=== PATIENT | male | born 1975 | race Caucasian/White ===

== ENCOUNTER → 2022-06-12 08:06 | Outpatient (BNVA) | payer OTHER, SELFPAY | PROVIDERS: Visit Provider Physician Assistant | DX: M47.812 Spondylosis without myelopathy or radiculopathy, cervical region (principal) | CPT/HCPCS: 72050 ==

== ENCOUNTER 2022-08-09 07:02 | Outpatient (CLI) | payer OTHER, SELFPAY ==
--- NOTE | 2022-08-09 07:15 | MR_ITS ---
WS: [id number] MRI CERVICAL SPINE NONCONTRAST TECHNIQUE: Sagittal T1, T2 and STIR imaging. Axial T2, gradient, and fiesta imaging. CLINICAL INFORMATION: neck pain COMPARISON: None. FINDINGS: Straightening with slight reversal normal cervical lordosis. Disc space narrowing worse at C3-C4 C4-C 5 and C5-C6. Slight retrolisthesis C5 on C6. Shallow disc protrusion T3-T4. Slightly anterolisthesis C2 on C3. C2-C3: Mild facet arthropathy. Mild LEFT and no significant RIGHT foraminal narrowing. C3-C4: Mild disc osteophytic ridging. Mild facet arthropathy. Moderate LEFT and no significant RIGHT foraminal narrowing. Spinal canal is patent. C4-C5: Mild disc osteophytic ridging. Mild facet arthropathy. Mild LEFT and no significant RIGHT fora cindy narrowing. C5-C6: Disc osteophyte complex with slight indentation on cervical cord. Mild to moderate central can al stenosis. Moderate to severe LEFT and mild RIGHT bony foraminal narrowing. Moderate facet arthropa thy. C6-C7: Disc osteophyte complex with endplate ridging. Moderate RIGHT and mild LEFT bony foraminal colt rowing. Moderate facet arthropathy. C7-T1: Normal. Visualized brain stem structures: Normal. Prevertebral soft tissues: Normal. MR/MR cervical spin wo con* [id number] IMPRESSION: 1. Straightening with reversal normal cervical lordosis. Disc space narrowing worse at C3-C4 C4-C5 and C5-C6. This appears unchanged since 2019 2. Mild to moderate central canal stenosis C5-C6 due to disc osteophyte comple x with slight contact of the cervical cord. 3. Multilevel bony foraminal narrowing moderate LEFT C3-C4, moderate to severe LEFT C5-C6, and moderate RIGHT C6-C7. 4. LEFT C2-C3 and LEFT C3-C4 facet synovitis with periarticular edema.
== END 2022-08-09 07:03 | disposition home or self-care (01) ==
PROVIDERS: Visit Provider Physician Assistant
DX: M47.812 Spondylosis without myelopathy or radiculopathy, cervical region (principal)
CPT/HCPCS: 72141

== ENCOUNTER 2022-08-30 09:21 | Outpatient (CLI) | payer OTHER, SELFPAY ==
[2022-08-30 09:57] LABS: Basophils # 0.1 10^3/uL (0.0-0.1); Basophils % 0.7 %; Eosinophils % 0.4 %; Hematocrit 47.9 % (42.0-52.0); Hemoglobin 15.8 g/dL (11.7-16.6); Lymphocytes # 1.6 10^3/uL (0.8-4.8); Lymphocytes % 21.7 %; Mean Corpuscular Hemoglobin 31.2 pg (28.0-34.0); Mean Corpuscular Volume 94.5 fl (80-94); Mean Platelet Volume 9.7 fL (7.4-10.4); Monocytes # 0.6 10^3/uL (0.2-0.9); Neutrophils # 4.99 10^3/uL (1.8-7.7); Neutrophils % 68.8 %; Nucleated Red Blood Cells % 0 %; Platelet Count 242 10^3/cmm (130-400); Red Blood Count 5.07 10^6/uL (4.1-5.3); Red Cell Distribution Width 12.6 % (12.1-15.1); White Blood Count 7.3 10^3/uL (4.0-10.0)
[2022-08-30 10:10] LABS: Alanine Aminotransferase 32 U/L (0-41); Albumin Level 4.3 g/dL (3.5-5.2); Alkaline Phosphatase 65 U/L (40-130); Anion Gap 11.3 (5-19); Aspartate Amino Transferase 26 U/L (0-40); Blood Urea Nitrogen 13 mg/dL (6-20); Calcium 9.1 mg/dL (8.5-10.5); Carbon Dioxide 29 mmol/L (22-29); Chloride 101 mmol/L (98-107); Globulin 2.7 g/dL (1.3-4.6); Glomerular Filtration Rate 102.7 mL/min (90-130); Glucose 86 mg/dL (65-115); Osmolality Calculated 283 mOsm/kg (285-295); Potassium 4.3 mmol/L (3.5-5.1); Sodium 137 mmol/L (136-145); Total Bilirubin 0.4 mg/dL (0.15-1.2)
== END 2022-08-30 09:22 | disposition home or self-care (01) ==
PROVIDERS: PCP Orthopaedic Surgery; Visit Provider Orthopaedic Surgery
DX: Z01.818 Encounter for other preprocedural examination (principal)
CPT/HCPCS: 36415; 80053; 85025

== ENCOUNTER 2022-09-26 11:00 | Day surgery (SDC) | payer OTHER, SELFPAY ==
[2022-09-13 08:32] VITALS: BMI 25.0
--- NOTE | 2022-09-13 17:11 | P.ANESASSM_ITS ---
Pre-Anesthetic Assessment Height/Weight: Height 1.83 m Weight 83.915 kg Operation Date: 09/24/22 09:40 Proposed Procedures p Anterior Cervical Discectomy & Fusion(Not Applicable) - Thom Paredes DO Familial anesthetic complications: none Was Beta Chip taken within 24 hours: N/A Was Clonidine taken within 24 hours: N/A Social No alcohol and No tobacco Exam alert, oriented x 3, clear to auscultation bilaterally and regular rate & rhythm Airway Submandibular: within normal limits Cervical ROM: within normal limits (Good ext with mild discomfort) Mallampati: Class II Dentition: full Musc/skel Osteoarthritis/DJD Anesthetic Plan ASA status: 2 Anesthesia: General Medications/Allergies Home Medications Medication Instructions Recorded Confirmed Last Taken Type Tens Unit #1 06/12/22 09/13/22 Unknown Rx gabapentin 300 mg capsule 300 mg PO BID 06/12/22 09/13/22 09/12/22 History methocarbamol 500 mg tablet 500 mg PO TID #90 tabs 08/14/22 09/13/22 09/13/22 Rx intraoperative neuromonitoring #1 09/10/22 09/13/22 Unknown Rx Bone Growth Stimulator [id number] #1 09/13/22 Unknown Rx magnesium L-threonate 48 mg 400 mg PO DAILY 09/13/22 09/13/22 09/12/22 History magnesium (667 mg) capsule multivitamin 1 tab PO DAILY 09/13/22 09/13/22 09/13/22 History tramadol 50 mg tablet 50 mg PO Q6H PRN Pain 09/13/22 09/13/22 09/12/22 History Allergies Allergy/AdvReac Type Severity Reaction Status Date / Time Penicillins Allergy Unknown Unknown Verified 09/13/22 09:51 [facility] Anesthesia Medical History Cervicalgia Cluster headache Surgical History Hx of LASIK [place] teeth extracted Family History Other CAD (coronary artery disease) Cancer Diabetes Hypertension Denies family history of Clotting disorder Anesthesia complication Bleeding disorder Stroke Social History Smoking and tobacco status: never smoked Second hand smoke exposure: Yes Alcohol intake: never Substance/Drug Use: never Data Anesthesia Cardiac Studies: No Data to Display
[2022-09-24 12:02] VITALS: BP 121/82; PULSE 83; RESP 18; TEMP 36.3; O2SAT 98
[2022-09-24] MEDS: sodium chloride 0.9% 1,000 ML 30 ML IV (12:19)
--- NOTE | 2022-09-24 13:09 | P.ANESUD_ITS ---
Pre-Anesthetic Update Pre-Anesthetic Assessment: Date of Surgery/Procedure: 09/24/22 Preop Phyllis gnosis: Cervical spondylosis with myelopathy Proposed Procedure: Operation Date: 09/24/22 13:20 Proposed Procedures p Anterior Cervical Discectomy & Fusion C3-4, C4-5, C5-6, C6-7(Not Applicable) - Thom Paredes, DO Any changes to Pre-Anesthetic Assessment?: No Last Intake: Intake Last Liquid Date 09/24/22 Last Liquid Time 07:00 Last Solid Date 09/23/22 Last Solid Time 18:00 Vitals: Temperature 97.4 F L 09/24/22 12:02 Temperature Source Temporal Artery S can 09/24/22 12:02 Pulse Rate 83 09/24/22 12:02 Respiratory Rate 18 09/24/22 12:02 Blood Pressure 121/82 09/24/22 12:02 Blood Pressure Samreen n 95 09/24/22 12:02 Pulse Oximetry 98 09/24/22 12:02 Oxygen Delivery Me thod Room Air 09/24/22 12:02 Exam: Pre-Anes Outpt Exam: alert, oriented x 3, clear to auscultation bilaterally and regular rate & rhythm Cardiac Studies: No Data to Display
[2022-09-24] MEDS: HYDROmorphone 1 mg/mL INJ 1 mL 0.5 MG IVP (13:34)
--- NOTE | 2022-09-24 14:14 | W.PM.OPSUD ---
Surgery/Procedure H&P Update DATE OF PROCEDURE: September 24, 2022 DATE H&P PERFORMED: 08/30/22 H&P UPDATE INFORMATION: I have reviewed H&P completed within last 30 days, I have examined patient prior to procedure and No changes to prior documentation PREOP DIAGNOSIS: Cervical spondylosis with myelopathy PLANNED PROCEDURE: Operation Date: 09/24/22 13:20 Proposed Procedures p Anterior Cervical Discectomy & Fusion C3-4, C4-5, C5-6, C6-7(Not Applicable) - Thom Pardees DO
[2022-09-24] MEDS: fentaNYL 50 mcg/mL INJ 2mL IVP (15:34)
--- NOTE | 2022-09-24 16:52 | SUR.PREOP ---
1615 Dr Paredes here to talk with pt and stated the emergency surgery had not started yet and it would be several hours with that case and his case would take several more hours and it would be better to place him on surgery schedule as first case Saturday instead of working late into the night,pt agreed and called who was on her way back from their home in [place], [place]
--- NOTE | 2022-09-26 | XR_ITS ---
WS: [id number] Cervical spine, C-arm fluoroscopy views, 09/26/2022 Clinical Data: or pic; ACDF C3-7 Comparison: Cervical spine, 06/12/2022 Findings: Dr. Paredes performed an anterior cervical disc fusion C3-C7.
== END 2022-09-26 18:00 | disposition home or self-care (01) ==
PROVIDERS: PCP Orthopaedic Surgery; Visit Provider Orthopaedic Surgery
DX: M47.12 Other spondylosis with myelopathy, cervical region (principal); Z53.9 Procedure and treatment not carried out, unspecified reason
CPT/HCPCS: 72040; J1170; J2001; J2250; J2704; J3010; J7030

== ENCOUNTER 2022-09-26 11:34 | Inpatient (IN) | payer OTHER, SELFPAY ==
[2022-09-26] VITALS (27 sets, daily range): BP systolic 91–119; BP diastolic 61–83; PULSE 62–87; RESP 14–18; TEMP 36.3–36.9; O2SAT 91–100; BMI 23.0
--- NOTE | 2022-09-26 | XR_ITS ---
WS: [id number] Cervical spine, C-arm fluoroscopy views, 09/26/2022 Clinical Data: or pic; ACDF C3-7 Comparison: Cervical spine, 06/12/2022 Findings: Dr. Paredes performed an anterior cervical disc fusion C3-C7. XR/XR cervical spine 3V* [id number] Impression: Anterior cervical disc fusion.
--- NOTE | 2022-09-26 06:34 | W.PM.OPSUD ---
Surgery/Procedure H&P Update DATE OF PROCEDURE: September 26, 2022 DATE H&P PERFORMED: 08/30/22 H&P UPDATE INFORMATION: I have reviewed H&P completed within last 30 days, I have examined patient prior to procedure and No changes to prior documentation PREOP DIAGNOSIS: Cervical spondylosis with myelopathy PLANNED PROCEDURE: Operation Date: 09/26/22 07:00 Proposed Procedures p Anterior Cervical Discectomy & Fusion(Not Applicable) - Thom Paredes DO s C3-4 C4-5 C5-6 C6-7 ACDFC3/4 Anterior Interbody Fusion:[id number],M47.12(Not Applicable) - Thom Paredes DO
[2022-09-26] MEDS: sodium chloride 0.9% 1,000 ML 30 ML IV (06:47)
[2022-09-26] MEDS: scopolamine 1.5 Patch 1 PATCH TRANSDERMA (06:57)
[2022-09-26] MEDS: clindamycin 900 MG/50 ML PREMIX 100 MG IV (07:02)
[2022-09-26] MEDS: lidocaine-epi 2% 20 mL INJ INJECTION (07:40)
--- NOTE | 2022-09-26 10:00 | P.OP_ITS ---
Operative Report Date of procedure: September 26, 2022 Pre-op diagnosis: Preop Diagnosis Cervical spondylosis with myelopathy Post-op diagnosis: same Procedure done: 1. Anterior diskectomy C3/4 2. Anterior diskectomy C4/5 3. Anterior diskectomy C5/6 4. Anterior discectomy C6/7 5. Insertion of cage C3/4 6. Insertion of cage C4/5 7. Insertion of cage C5/6 8. Insertion of Cage C6/7 9. Instrumentation with anterior plate from C3-C7 10. Use of allograft Surgeon: Thom Paredes Podiatrist Orthopedic: Rick Flores Podiatrist Orthopedic: The operating room surgical technician, Rick Flores, PAC was needed for his expertise under the microscope. He was important and necessary throughout the procedure to complete in a safe and timely manner. He assisted with patient positioning prepping and draping tissue retraction suctioning of the operative field protection of the dural sac and tissue closure Estimated blood loss (mL): 100 Procedure: 1. Anterior diskectomy C3/4 2. Anterior diskectomy C4/5 3. Anterior diskectomy C5/6 4. Anterior discectomy C6/7 5. Insertion of cage C3/4 6. Insertion of cage C4/5 7. Insertion of cage C5/6 8. Insertion of Cage C6/7 9. Instrumentation with anterior plate from C3-C7 10. Use of allograft The patient was taken to the operating room, where he underwent general endotracheal anesthesia without complications. He was then positioned supine on the operating table, and all areas of impingement were well padded. The arms were carefully padded and tucked at his sides. A roll was placed between the shoulder blades.. An x-ray was done to determine the appropriate level for the skin incision. The entire neck was then sterilely prepped and draped in the usual fashion. Neuromonitoring was attached prior to prepping. A transverse skin incision was made and carried down to the platysma muscle. This was then split in line with its fibers. Blunt dissection was carried down medial to the carotid sheath and lateral to the trachea and esophagus until the anterior cervical spine was visualized. A needle was placed into a disc and an x-ray was done to determine its location. The longus colli muscles were then elevated bilaterally with the electrocautery unit. Self-retaining retractors were placed deep to the longus colli muscle. Attention was brought to the C3/4 level that was confirmed on x-ray. A caspar pin was placed into the C3 vertebrae and the C4 vertebrae. The disk space was then distracted. The microscope was then brought in. A radical anterior discectomies were performed at C3/4. This included complete removal of the anterior annulus, nucleus, and posterior annulus. The posterior longitudinal ligament was removed as were the posterior osteophytes. Foraminotomies were then accomplished bilaterally. This was done using a high speed min, kerrison rongeurs and curretes Once all of this was accomplished, the curved currette was used to check for any residual compression. The central canal was wide open as were the foramen. A high-speed bur was used to remove the cartilaginous endplates above and below the interspace. Bleeding cancellous bone was exposed. The disc space were measured and appropriate size cage were placed sterilely onto the field. Allograft graft was packed into the cages. The cage was then placed and there was good juxtaposition against the bleeding decorticated surfaces and good distraction of each interspace. Attention was brought to the next interspace. The Paden pins were removed. Bone wax was used to prevent any bleeding from occurring at the pin sites. Attention was brought to the C4/5 level that was confirmed on x-ray. A caspar pin was placed into the C4 vertebrae and the C5 vertebrae. The disk space was then distracted. The microscope was then brought in. A radical anterior discectomies were performed at C4/5. This included complete removal of the anterior annulus, nucleus, and posterior annulus. The posterior longitudinal ligament was removed as were the posterior osteophytes. Foraminotomies were then accomplished bilaterally. This was done using a high speed min, kerrison rongeurs and curretes Once all of this was accomplished, the curved currette was used to check for any residual compression. The central canal was wide open as were the foramen. A high-speed bur was used to remove the cartilaginous endplates above and below the interspace. Bleeding cancellous bone was exposed. The disc space were measured and appropriate size cage were placed sterilely onto the field. Allograft graft was packed into the cages. The cage was then placed and there was good juxtaposition against the bleeding decorticated surfaces and good distraction of each interspace. Attention was brought to the next interspace. The Paden pins were removed. Bone wax was used to prevent any bleeding from occurring at the pin sites. Attention was brought to the C5/6 level that was confirmed on x-ray. A caspar pin was placed into the C5 vertebrae and the C6 vertebrae. The disk space was then distracted. The microscope was then brought in. A radical anterior discectomies were performed at C5/6. This included complete removal of the anterior annulus, nucleus, and posterior annulus. The posterior longitudinal ligament was removed as were the posterior osteophytes. Foraminotomies were then accomplished bilaterally. This was done using a high speed min, kerrison rongeurs and curretes Once all of this was accomplished, the curved currette was used to check for any residual compression. The central canal was wide open as were the foramen. A high-speed bur was used to remove the cartilaginous endplates above and below the interspace. Bleeding cancellous bone was exposed. The disc space were measured and appropriate size cage were placed sterilely onto the field. Allograft graft was packed into the cages. The cage was then placed and there was good juxtaposition against the bleeding decorticated surfaces and good distraction of each interspace. Attention was brought to the next interspace. The Paden pins were removed. Bone wax was used to prevent any bleeding from occurring at the pin sites. Attention was brought to the C6/7 level that was confirmed on x-ray. A caspar pin was placed into the C6 vertebrae and the C7 vertebrae. The disk space was then distracted. The microscope was then brought in. A radical anterior discectomies were performed at C6/7. This included complete removal of the anterior annulus, nucleus, and posterior annulus. The posterior longitudinal ligament was removed as were the posterior osteophytes. Foraminotomies were then accomplished bilaterally. This was done using a high speed min, kerrison rongeurs and curretes Once all of this was accomplished, the curved currette was used to check for any residual compression. The central canal was wide open as were the foramen. A high-speed bur was used to remove the cartilaginous endplates above and below the interspace. Bleeding cancellous bone was exposed. The disc space were measured and appropriate size cage were placed sterilely onto the field. Allograft graft was packed into the cages. The cage was then placed and there was good juxtaposition against the bleeding decorticated surfaces and good distraction of each interspace. Attention was brought to the next interspace. The Paden pins were removed. Bone wax was used to prevent any bleeding from occurring at the pin sites. The appropriate size anterior cervical locking plate was chosen and bent into gentle lordosis. Two screws were then placed into each of the vertebral bodies at C3, C4, C5, C6 and C7. There was excellent purchase. A final x-ray was done confirming good position of the hardware and Cages. The locking screws were then applied, also with excellent purchase. Following a final copious irrigation, there was good hemostasis and no dural leaks. The carotid pulse was strong. The wounds were then closed in layers using 2-0 Vicryl suture for the platysma muscle, 2-0 Vicryl suture for the subcutaneous tissue, and 4-0 monocryl suture in a subcuticular skin closure. Glue was placed followed by application of a sterile dressing. The drain was hooked to bulb suction. A soft collar was applied. The patient was then carefully returned to the supine position on his hospital bed where he was reversed and extubated and taken to the recovery room having tolerated the procedure well.
--- NOTE | 2022-09-26 10:06 | PC.NURSE ---
Pt arrived to PACU, resting comfortably, oral airway in place, O2 at 6L/min via simple mask. Dressing to neck C/D/I, [place] J collar in place, hemovac drain patent and draining, able to move all extremities. SCD's bilaterally in place and running.
--- NOTE | 2022-09-26 10:19 | PC.NURSE ---
Pt awake, oral airway removed, pt tolerated well.
[2022-09-26] MEDS: fentaNYL 50 mcg/mL INJ 2mL IVP ×2 (10:25→11:21)
[2022-09-26] MEDS: diazePAM 5 mg Tablet PO (12:52)
[2022-09-26] MEDS: lactated ringers 1,000 ML 90 ML IV ×2 (12:53→23:01)
--- NOTE | 2022-09-26 13:21 | ANE.PACU2 ---
Inpatient post-anesthesia follow up: Airway intact: Yes Vital signs: Temperature 97.4 F Pulse Rate 71 Respiratory Rate 18 Blood Pressure 105/72 Pulse Oximetry 98 Oxygen Delivery Me thod Room Air Oxygen Flow Rate 1 Fraction of Inspir ed Oxygen Hydration adequate: Yes Nausea and vomiting: No Pain level: 1 Mental status: Baseline
[2022-09-26] MEDS: methocarbamol 500 mg Tablet PO ×2 (14:02→20:23)
[2022-09-26] MEDS: gabapentin 300 mg Capsule PO ×2 (14:02→20:24)
[2022-09-26] MEDS: cetylpyridinium Lozenge 1 EACH MUCOUS MEM ×2 (14:32→16:56)
[2022-09-26] MEDS: oxyCODONE-APAP 10-325 mg Tablet PO ×2 (16:24→20:23)
[2022-09-26] MEDS: docusate sodium 100 mg Capsule PO (16:58)
[2022-09-26] MEDS: ketorolac 30 mg/mL INJ IVP (19:26)
[2022-09-27] VITALS (11 sets, daily range): BP systolic 95–113; BP diastolic 61–68; PULSE 74–111; RESP 16–20; TEMP 36.9–39.6; O2SAT 88–98
[2022-09-27] MEDS: oxyCODONE-APAP 10-325 mg Tablet PO ×3 (00:17→13:11)
[2022-09-27] MEDS: cetylpyridinium Lozenge 1 EACH MUCOUS MEM ×3 (01:36→15:27)
[2022-09-27] MEDS: ketorolac 30 mg/mL INJ IVP (02:53)
--- NOTE | 2022-09-27 07:12 | PM.PN ---
Subjective Subjective: POD 1 Patient resting comfortably. Reports improvement of his neck and arm symptoms. Denies any headaches, chest pain, shortness of breath denies any voice changes. Vitals/I&O/Wt Last Vital Signs Temp 98.5 F 09/27/22 03:25 Pulse 93 09/27/22 03:25 Resp 16 09/27/22 04:19 BP 100/62 09/27/22 03:25 Pulse Ox 90 09/27/22 03:25 O2 Del Method Room Air 09/26/22 21:42 O2 Flow Rate 1 09/26/22 10:41 09/26/22 09/27/22 09/27/22 22:59 06:59 14:59 Intake Total 360 / 1960 1912 / 3872 Output Total 440 / 640 30 / 670 Balance -80 / 1320 1882 / 3202 Weight last 48 hrs Weight 170 lb Physical Exam Narrative: Patient is alert and oriented x3 with a good general appearance normal mood and affect. Nontender with palpation about the incisional site. Incision appears to be clean and dry without signs of erythema or drainage. No signs of infection. Good motor strength throughout both upper extremities. Appears to fire in all motor groups with 5/5 strength. Hands are warm good cap refill in all digits. Normal sensation to light touch in all dermatomal areas. Urinary Catheter Management: Nettles: Cath Placed During This Visit: yes, but has since been removed by the nurse Urinary Catheter Date of Insertion: 09/26/22 Urinary Catheter Time of Insertion: 07:15 Date Urinary Catheter Removed: 09/26/22 Time Urinary Catheter Discontinued: 10:00 A&P Assessment and plan (1) Status post cervical spinal fusion: Discontinue Hemovac drain. Continue [place] J collar. Home with incentive spirometer for pulmonary toilet. Follow-up in 1 week's time for wound check and call if he is having problems. Discussed no bending lifting or twisting activities. Attestations Medical Necessity Statement*: Discharge home this morning Coding Level of Care Code Acute Code for Chg Fwd Diagnoses Status post cervical spinal fusion Z98.1
[2022-09-27] MEDS: gabapentin 300 mg Capsule PO ×3 (10:16→20:11)
[2022-09-27] MEDS: methocarbamol 500 mg Tablet PO ×3 (10:16→20:11)
[2022-09-27] MEDS: multivitamin therapeutic Tablet 1 TAB PO (10:16)
[2022-09-27] MEDS: docusate sodium 100 mg Capsule PO ×2 (10:16→17:28)
--- NOTE | 2022-09-27 11:28 | PC.NURSE ---
Addendum entered by Mae Aceves LPN 09/27/22 11:56: Chest x-ray was cancelled by Bon Original Note: Upon giving morning medications prior to starting patients discharge, this nurse noticed that patient was warm to the touch and had c/o pain. Patient also had a BP of 95/61 this morning. This nurse obtained a set of vitals which resulted in a BP of 113/62, O2 sat of 91%, a HR of 111 and a temp of 103.2. Patient was sat upright in chair, NC put on with 2L of O2 started and a STAT chest x-ray was ordered. Dr. Paredes notified by charge nurse. Discharge pending at this time and care is ongoing.
--- NOTE | 2022-09-27 11:43 | PC.NURSE ---
EDWIN Crockett spoke with this nurse and requested that this nurse give patient tylenol to lower fever as well as valium and allow patient to walk in halls with his . I informed Bon that patient got dizzy walking to the bathroom. Bon also took O2 off of patient and would like this nurse to monitor his O2 sats. If patient shows improvement by later in the day, he wishes for patient to continue to be discharged.
[2022-09-27] MEDS: acetaminophen 325 mg Tablet 650 MG PO ×2 (12:06→20:20)
[2022-09-27] MEDS: diazePAM 5 mg Tablet PO (12:06)
--- NOTE | 2022-09-27 13:15 | PC.NURSE ---
This nurse took another set of vitals on patient. Patients O2 on RA was 88%, BP of 96/66, HR of 101 and temp of 103.3 approximately 1 hour after administering PO tylenol. Patient reports pain of 6/10 and states the pain is in the back of his neck causing strain to the occipital area of his head and radiating down his shoulder blades. 5-325mg of oxycodone given at this time and this nurse will monitor BP closely following administration of this pain medication. Patient was placed back on 2L of O2 via NC. Patient continues to use spirometer. Care ongoing.
--- NOTE | 2022-09-27 13:28 | PC.NURSE ---
Hemovac drain removed at 1034 due to discharge orders being placed for patient to go home. No output from drain. Patient tolerated well and no bleeding noted from incision site. New siverlon dressing was placed on anterior neck as hemovac was placed underneath initial one.
--- NOTE | 2022-09-27 17:21 | PC.NURSE ---
EDWIN Cabrera rounded on patient this evening and patient feels comfortable discharging. Temp and HR have improved, however, patient continues to de-sat anywhere from 88%-91% O2 after taking off 2L O2 via NC and BP is 106/64. Will continue with d/c as requested by Rick and patient.
--- NOTE | 2022-09-28 10:53 | P.DS_ITS ---
Discharge Providers Date of Admission: 09/26/22 11:34 Date of Discharge: September 27, 2022 Attending Provider at Admission: Thom Paredes DO Attending Provider at Discharge: Thom Paredes DO Diagnoses at Discharge Discharge Diagnosis (1) Status post cervical spinal fusion: Status: Acute Physical Exam Urinary Catheter Management: Nettles: Cath Placed During This Visit: yes, but has since been removed by the nurse Urinary Catheter Date of Insertion: 09/26/22 Urinary Catheter Time of Insertion: 07:15 Date Urinary Catheter Removed: 09/26/22 Time Urinary Catheter Discontinued: 10:00 Discharge Data Studies Completed and Pending Completed Studies During Hospitalization Category Date Time Status XR cervical spine 3V* [id number] Routine Exams 09/26/22 Completed Radiology Impressions Cervical Spine X-Ray 09/26/22 00:00 Impression: Anterior cervical disc fusion. Vitals Last Vital Signs Temp 99.6 F 09/27/22 16:12 Pulse 79 09/27/22 16:12 Resp 16 09/27/22 16:00 BP 106/64 09/27/22 16:12 Pulse Ox 88 L 09/27/22 16:12 O2 Del Method Room Air 09/27/22 16:12 O2 Flow Rate 1 09/26/22 10:41 Discharge Plan Discharge Patient Disposition: Home Condition: Stable Prescriptions: New oxycodone 5 mg tablet 5 mg PO Q4H PRN (Reason: pain) 7 Days Qty: 40 0RF Continued (DME) Tens Unit See Rx Instructions .Route .MEDSUPPLY Qty: 1 0RF Rx Instructions: As directed methocarbamol 500 mg tablet 500 mg PO TID Qty: 90 0RF (DME) Bone Growth Stimulator [id number] See Rx Instructions .Route .MEDSUPPLY Qty: 1 0RF Rx Instructions: As directed. oxycodone 5 mg tablet 5 mg PO Q8H PRN (Reason: pain) 7 Days Qty: 21 0RF gabapentin 300 mg capsule 300 mg PO TID 30 Days Qty: 90 0RF (DME) intraoperative neuromonitoring See Rx Instructions .Route .MEDSUPPLY Qty: 1 0RF Rx Instructions: As directed tramadol 50 mg Tablet 50 mg PO Q6H PRN (Reason: Pain) multivitamin Tablet 1 tab PO DAILY magnesium L-threonate 48 mg magnesium (667 mg) Capsule 400 mg PO DAILY acetaminophen 650 mg Tablet Extended Release 650 mg PO Q12H prednisone 20 mg tablet 20 mg PO DAILY No Action diazepam [Valium] 5 mg tablet 5 mg PO BID PRN (Reason: anxiety) Qty: 30 0RF Discharge Orders: Discharge Order (Routine); Ordered 09/27/22 Ordered By: Rick Flores Referrals: Jany Whiting [Other] - 10/05/22 9:00 am (I did verify that they do take your insurance. ) Discharge Diet: Advance as tolerated Discharge Activity: Limit activity as instructed Patient Instructions: Oxycodone, Rapid Release (By mouth), Anterior Cervical Discectomy (DC), Opioid Safety Activity Restrictions/Additional Instructions: Thank you for choosing [facility] for your care! The following is a list of instructions, from your provider, to follow upon your discharge to ensure you have the optimal recovery from your recent injury or surgery. Anterior Cervical Discectomy and Fusion: What to Expect at Home Your Recovery Follow-up care is a fox part of your treatment and safety. Be sure to make and go to all appointments, and call your doctor if you are having problems. If you do not already have a follow-up appointment made, call office in the next 1-3 days to make follow up appointment for 1-2 weeks at [phone]. It is also a good idea to know your test results and keep a list of the medicines you take. You can expect your neck to feel stiff or sore after surgery. This should improve in the weeks after surgery. But it may take 4 to 6 months for you to get better completely. You may have trouble sitting or standing in one position for very long and may need pain medicine in the weeks after your surgery. It may take 4 to 6 weeks to get back to your usual activities, but it may depend on what kind of surgery you had. Your throat will feel sore and it may be difficult to swallow for the first 3 days after your surgery. As long as you can get liquids down without difficulty, this should slowly improve, otherwise call our office or seek medical attention if it becomes increasingly difficult to get anything down including liquids. Avoid hot liquids for first 3-5 days. Soothing foods/liquids such as jello, pudding, and luke warm soups are recommended until swallowing improves. Staying elevated will also help, it's advised you keep propped up at while sleeping to help reduce the swelling. You may use an ice pack directly on your incision or around it on the front of your neck, using a cloth to protect your skin; and a heating pad to the back of your neck as needed. Do not use over the counter anti-inflammatory medications (Ibuprofen, Motrin, Aleve, Advil, etc) Taking these meds after having a fusion can delay fusion rates, we recommend you avoid them for the first 3 months after your surgery[address] Dr. Paredes may advise you to work with a physical therapist to strengthen the muscles around your neck and back - this will be discussed at your follow - up appointments. The pain or numbness you were having in your arms before surgery should get better or go away completely. This care sheet gives you a general idea about how long it will take for you to recover. But each person recovers at a different pace. Follow the steps below to get better as quickly as possible. How can you care for yourself at home? Activity ? Rest when you feel tired. Getting enough sleep will help you recover. ? Try to walk each day. Start by walking a little more than you did the day before. Bit by bit, increase the amount you walk. Walking boosts blood flow and helps prevent pneumonia and constipation. Walking may also decrease your muscle soreness after surgery. ? No lifting anything that is more that 5 pounds. This may include heavy grocery bags and milk containers, a heavy briefcase or backpack, cat litter or dog food bags, a child, or a vacuum industrial cleaner. ? Avoid strenuous activities, such as bicycle riding, jogging, weightlifting, or aerobic exercise, until your doctor says it is okay. ? Do not drive until your follow-up visit after your surgery, or until your doctor says it isokay. ? Avoid taking long car trips for 2 to 4 weeks after surgery. Your neck may become tired and painful from sitting too long in one position. ? You will probably need to take 4 to 6 weeks off from work. It depends on the type of work you do and how you feel. ? You may have sex as soon as you feel able, but avoid positions that put stress on your neck or cause pain. Diet ? You can eat your normal diet. If your stomach is upset, try bland, low-fat foods like plain rice, broiled chicken, toast, and yogurt ? Drink plenty of fluids. If you have kidney, heart, or liver disease and have to limit fluids, talk with your doctor before you increase the amount of fluids you drink. ? You may notice that your bowel movements are not regular right after your surgery. This is common. Try to avoid constipation and straining with bowel movements. You may want to take a fiber supplement every day. If you have not had a bowel movement after a couple of days, ask your doctor about taking a mild laxative. Medicines ? Take pain medicines exactly as directed. 1. If Dr. Paredes gave you a prescription medicine for pain, take lt as prescribed. 2. Do not take two or more pain medicines at the same time unless the doctor told you to. Many pain medicines have acetaminophen, which is Tylenol. Too much acetaminophen {Tylenol) can be harmful. 3. If you think your pain pill is making you sick to your stomach: 4. Take your pills after meals (unless your doctor has told you not to). 5. Ask your Dr. for a different pain pill. Incisioncare ? Remove your dressing 48 hours after your surgery. Ok to shower and get the incision wet. Do not overtly wash your incision. When done, pad dry, leave open to air thereafter. Avoid creams and ointments directly on your incision. ? Your sutures in the incision will dissolve and fall out on their own. ? Keep the area clean and dry. You may cover it with a gauze bandage if it weeps or rubs against clothing; if you choose to do this, change the dressing everyday. Other instructions ? Use a heating pad, hot water bottle, or gentle massage on your back to reduce stiffness. Avoid putting heat on your incision When should you call for help? ? Call 911 anytime you think you may need emergency care. For example, call if: ? You pass out (lose consciousness). ? You have sudden chest pain and shortness of breath, or you cough upbl ood. ? You cannot swallow. ? You have severe pain in your neck or back. ? Call your DrMisha or seek immediate medical care if: ? You have pain that does not get better after you take pain pills. ? You have loose stitches, or your incision comes open. ? You have blood or fluid draining from the incision. ? You have signs of infection, such as: 1. Increased pain, swelling, warmth, or redness. 2. Red streaks leading from the site. 3. Pus draining from the site. 4. Swollen lymph nodes in your neck or armpits. 5. A fever. ? You have severe pain in your arms. ? You have new or increased weakness or numbness in your arms. ? Watch closely for any changes in your health, and be sure to contact your doctor if: ? You do not have a bowel movement after taking a laxative. Discharge Attestations Time Spent in Discharge Care*: less than 30 min Quality Metrics Clinical Quality Measures [ No reported AMI, CVA or VTE this stay] Coding Level of Care Code Acute Code for Chg Fwd Diagnoses Status post cervical spinal fusion Z98.1
== END 2022-09-27 20:15 | disposition home or self-care (01) | DRG 473 ==
LOC: MEDSURG 11:35
PROVIDERS: Admitting Provider Orthopaedic Surgery; Visit Provider Orthopaedic Surgery
PROC: 0RB30ZZ Excision of Cervical Vertebral Disc, Open Approach (ICD-10-PCS; CPT 22551; principal; 2022-09-26 07:00)
PROC: 0SG00A0 Fusion of Lumbar Vertebral Joint with Interbody Fusion Device, Anterior Approach, Anterior Column, Open Approach (ICD-10-PCS; CPT 22558; 2022-09-26 07:00)
DX: M47.12 Other spondylosis with myelopathy, cervical region (principal)
CPT/HCPCS: 51702; 72040; 76000; 97161; C1713; C1763; C9359; J0131; J0330; J1100; J1170; J1200; J1885; J2250; J2370; J2405; J2704; J2710; J3010; J3490; J7030; J7120; L0172; P9045

== ENCOUNTER → 2022-10-09 11:11 | Outpatient (BNVA) | payer OTHER, SELFPAY | PROVIDERS: Visit Provider Physician Assistant | DX: Z98.1 Arthrodesis status (principal); M47.12 Other spondylosis with myelopathy, cervical region | CPT/HCPCS: 72040 ==

== ENCOUNTER → 2022-10-30 08:50 | Outpatient (BNVA) | payer OTHER, SELFPAY | PROVIDERS: Visit Provider Orthopaedic Surgery | DX: Z98.1 Arthrodesis status (principal) | CPT/HCPCS: 72040 ==

== ENCOUNTER → 2022-12-13 08:09 | Outpatient (BNVA) | payer OTHER, SELFPAY | PROVIDERS: Visit Provider Orthopaedic Surgery | DX: Z47.89 Encounter for other orthopedic aftercare; Z98.1 Arthrodesis status | CPT/HCPCS: 72040 ==

== ENCOUNTER → 2023-02-21 08:55 | Outpatient (BNVA) | payer OTHER, SELFPAY | PROVIDERS: Visit Provider Orthopaedic Surgery | DX: Z98.1 Arthrodesis status (principal) | CPT/HCPCS: 72040 ==

== ENCOUNTER 2023-02-28 10:07 | Outpatient (CLI) | payer OTHER, SELFPAY ==
--- NOTE | 2023-02-28 17:30 | CT_ITS ---
WS: [id number] CT CERVICAL SPINE HISTORY: cervical fusion with pain. TECHNIQUE: Contiguous 2.0 mm axial imaging performed through the entire cervical spine. Sagittal and coronal reformats also performed. All CT scans at [facility] use at least one of these dose o ptimization techniques: automated exposure control; mA and/or kV adjustment per patient size (include s targeted exams where dose is matched to clinical indication); or iterative reconstruction. DLP: 181.87 mGy.cm COMPARISON: 10/27/2019 and 02/21/2023 Prior anterior cervical fusion from C3-C7. Interbody spacers at C3-4, C4-5, C5-6 and C6-7. No fusion across the spacers at this time. The hardware appears intact. No lucency surrounding the screws. 2 mm anterolisthesis of C2. No acute fractures. Lateral masses of C1 and C2 are aligned. The odontoid pro cess is intact. Head is tilted to the LEFT. C2-C3: No fracture. No stenosis. Mild widening of the LEFT C2-3 facet joint with bony sclerosis and f ragmentation. Facet synovitis with periarticular edema was noted at this location on the prior MRI fr om 08/09/2022. C3-C4: Mild osteophytic ridging with mild LEFT foramen narrowing. C4-C5: Mild vertebral body osteophytic ridging. Mild LEFT foramen narrowing. C5-C6: Osteophytic ridging encroaching upon the ventral thecal sac with mild foraminal narrowing. C6-C7: Mild osteophytic ridging. No stenosis. C7-T1: No stenosis. Soft tissues are normal. Lung apices are clear. IMPRESSION: 1. Status post anterior cervical fusion with interbody spacers from C3-C7. No fusion across the disc spaces at this time. 2. No high-grade central stenosis. 3. No fractures. 4. Facet joint degenerative changes at C2-3 on the LEFT. Facet synovitis was previously described on MRI at this location.
== END 2023-02-28 10:08 | disposition home or self-care (01) ==
LOC: RAD 10:07
PROVIDERS: Visit Provider Orthopaedic Surgery
DX: Z98.1 Arthrodesis status (principal); M47.812 Spondylosis without myelopathy or radiculopathy, cervical region
CPT/HCPCS: 72125

== ENCOUNTER → 2023-10-08 15:37 | Outpatient (BNVA) | payer OTHER, SELFPAY | PROVIDERS: Visit Provider Orthopaedic Surgery | DX: Z98.1 Arthrodesis status (principal); M54.2 Cervicalgia | CPT/HCPCS: 72040 ==

== ENCOUNTER → 2024-01-23 07:57 | Outpatient (BNVA) | payer OTHER, SELFPAY | PROVIDERS: PCP Nurse Practitioner Family; Visit Provider Orthopaedic Surgery | DX: M54.50 Low back pain, unspecified (principal) | CPT/HCPCS: 72110 ==